=== PATIENT | male | born 1975 | race Caucasian/White ===

== ENCOUNTER 2023-08-20 11:32 | Emergency (ER) | payer BC, OTHER ==
[2023-08-20] MEDS: Fluorescein 1 MG Ophth Strip EYERT ONE (12:44)
[2023-08-20] MEDS: Proparacaine 0.5% Ophth Soln 15 ML Bottle EYELF STA (13:06)
[2023-08-20] MEDS: Erythromycin Base 0.5% Ophth Oint 1 GM Tube EYELF ONE (14:22)
[2023-08-20] MEDS: Acetaminophen/oxyCODONE 325-5 MG Tab PO ONE (14:23)
[2023-08-20] MEDS: Ketorolac 60 MG/2 ML SDV IM ONE (14:23)
== END 2023-08-20 16:55 | disposition home or self-care (01) ==
LOC: MERGE 11:32 → JD.ED 11:32
DX: S05.02XA Injury of conjunctiva and corneal abrasion without foreign body, left eye, initial encounter (principal); Z91.013 Allergy to seafood; X50.9XXA Other and unspecified overexertion or strenuous movements or postures, initial encounter
CPT/HCPCS: 99283; A9270; J3490